=== PATIENT | male | born 1960 | race Caucasian/White ===

== ENCOUNTER → 2017-01-17 | Outpatient (CLI) | payer BC ==
[~2017-01-17] MED LIST: AUGMENTIN 500 M1 TAB PO
[2017-01-17 08:40] LABS: ALBUMIN 3.6 gm/dl (3.1-4.5); ALKALINE PHOSPHATASE 93 U/L (45-117); BILIRUBIN, TOTAL 0.3 mg/dl (0.2-1.0); BUN 17 mg/dl (7-24); CARBON DIOXIDE 21 mmol/L (21-32); CHLORIDE 110 mmol/L (98-107); CHOLESTEROL 326 mg/dL (<200); CPK 188 U/L (39-308); EST GLOM FILT AFRICAN AMERICAN > 60 ml/min; GLUCOSE 113 mg/dL (65-99); HDL CHOLESTEROL 35 mg/dl (40-60); POTASSIUM 4.4 mmol/L (3.5-5.1); SGOT/AST 26 IU/L (3-35); SODIUM 141 mmol/L (136-145); TOTAL PROTEIN 6.8 gm/dL (6.4-8.2); TRIGLYCERIDES 849 mg/dl (<150)
[2017-01-17 10:48] LABS: SGPT/ALT 31 U/L (12-78)
== END | disposition home or self-care (01) ==
LOC: LAB 07:33
PROVIDERS: Family Medicine
DX: E78.00 Pure hypercholesterolemia, unspecified (principal); I10 Essential (primary) hypertension; E55.9 Vitamin D deficiency, unspecified

== ENCOUNTER → 2017-06-06 | Outpatient (CLI) | payer BC ==
[2017-06-06 08:41] LABS: HEMATOCRIT 39.4 % (42.0-52.0); HEMOGLOBIN 13.3 g/dl (14.0-18.0); MEAN CELL VOLUME 93.6 fl (80.0-94.0); MEAN CORPUSCULAR HGB 31.6 pg (27.0-31.0); MEAN CORPUSCULAR HGB CONC 33.8 g/dl (33.0-37.0); MEAN PLATELET VOLUME 10.2 fl (9.6-12.3); RED BLOOD COUNT 4.21 10*6/uL (4.50-5.90); RED CELL DISTRI WIDTH 12.9 % (0-14.5); WHITE BLOOD COUNT 8.4 10*3/uL (4.8-10.8)
[2017-06-06 09:04] LABS: ALBUMIN 4.2 gm/dl (3.1-4.5); BUN 21 mg/dl (7-24); CHLORIDE 102 mmol/L (98-107); POTASSIUM 4.6 mmol/L (3.5-5.1); SODIUM 136 mmol/L (136-145)
[2017-06-06 09:11] LABS: ALKALINE PHOSPHATASE 64 U/L (45-117); CHOLESTEROL 182 mg/dL (<200); CREATININE 1.12 mg/dL (0.70-1.30); HDL CHOLESTEROL 60 mg/dl (40-60); LDL CHOLESTEROL 93 mg/dL (9-159); SGOT/AST 28 IU/L (3-35); SGPT/ALT 23 U/L (12-78); TOTAL PROTEIN 7.8 gm/dL (6.4-8.2); TRIGLYCERIDES 143 mg/dl (<150); VLDL CHOLESTEROL 29 mg/dL (6-40)
[2017-06-07 07:07] LABS: HEPATITIS B SURFACE AG Negative (Negative); HEPATITIS C VIRUS ANTIBODY <0.1 s/co (0.0-0.9)
== END | disposition home or self-care (01) ==
LOC: LAB 08:09
PROVIDERS: Family Medicine
DX: Z12.5 Encounter for screening for malignant neoplasm of prostate (principal); I10 Essential (primary) hypertension; E78.00 Pure hypercholesterolemia, unspecified; E55.9 Vitamin D deficiency, unspecified; R79.89 Other specified abnormal findings of blood chemistry

== ENCOUNTER → 2017-10-16 | Outpatient (CLI) | payer BC ==
[2017-10-16 10:58] LABS: HEMATOCRIT 39.4 % (42.0-52.0); HEMOGLOBIN 13.3 g/dl (14.0-18.0); MEAN CELL VOLUME 94.9 fl (80.0-94.0); MEAN CORPUSCULAR HGB CONC 33.8 g/dl (33.0-37.0); MEAN PLATELET VOLUME 9.7 fl (9.6-12.3); RED BLOOD COUNT 4.15 10*6/uL (4.50-5.90)
[2017-10-16 11:24] LABS: ALBUMIN 4.3 gm/dl (3.1-4.5); ALKALINE PHOSPHATASE 64 U/L (45-117); BUN 18 mg/dl (7-24); CHLORIDE 104 mmol/L (98-107); CHOLESTEROL 190 mg/dL (<200); CREATININE 1.07 mg/dL (0.70-1.30); HDL CHOLESTEROL 57 mg/dl (40-60); LDL CHOLESTEROL 97 mg/dL (9-159); SGOT/AST 22 IU/L (3-35); SGPT/ALT 20 U/L (12-78); SODIUM 138 mmol/L (136-145); TRIGLYCERIDES 178 mg/dl (<150); VLDL CHOLESTEROL 36 mg/dL (6-40)
== END | disposition home or self-care (01) ==
LOC: LAB 10:34
PROVIDERS: Family Medicine
DX: M19.011 Primary osteoarthritis, right shoulder (principal); E78.00 Pure hypercholesterolemia, unspecified; E55.9 Vitamin D deficiency, unspecified; I10 Essential (primary) hypertension

== ENCOUNTER → 2017-11-06 | Outpatient (CLI) | payer BC | END | disposition home or self-care (01) | LOC: MRI 12:48 | DX: M19.011 Primary osteoarthritis, right shoulder (principal) ==

== ENCOUNTER 2018-02-06 08:36 | Inpatient (IN) | payer BC ==
[~2018-02-06] VITALS: Ht 182.8 cm; Wt 87.7 kg
--- NOTE | ~2018-02-06 | DS ---
[place], [place] DISCHARGE SUMMARY NAME: EMELIA MEDINA UNIT #: [id number] ROOM: 405 DOCTOR: CHRISTY GUERRIER MD BIRTHDATE: [birth year] DOS: 02/07/2018 DISCHARGE DIAGNOSES: 1. Shortness of breath and back and left arm pains with normal cardiac stress test so far. 2. History of nicotine smoke dependence. 3. Benign essential hypertension. 4. Mixed hyperlipidemia. 5. Type 2 diabetes mellitus. 6. Severe generalized anxiety disorder. 7. Possible history of bronchial asthma. HOSPITAL COURSE: 1. The patient was admitted for recurrent complaints of shortness of breath and he also had an episode of left arm pain and back pains, taken as an anginal equivalent. The patient's cardiac enzymes were found to be normal, so he was taken for a cardiac stress test today. The EKG part of the cardiac stress test was normal and the nuclear portion which is the Cardiolite portion of the stress test will be reported by Dr. Johnston later today. If normal, the patient will be discharged home to follow up with his PCP, Dr. Aramis Dowling next week. 2. History of mixed hyperlipidemia, treated with low fat diet. The patient has lost 30 pounds of weight recently. 3. Nicotine smoke dependence. The patient smokes cigars and also was exposed to secondhand smoke from his and other family. The patient was cautioned about stopping to smoke and bad effects of cigarette smoke on his health and also secondhand smoker was explained to him. The patient's pulse ox remained 100% even with exercise in the hallways today. 4. Benign essential hypertension, treated and controlled. DISCHARGE MEDICATIONS: Aspirin 81 mg a day, metformin 500 mg daily, lisinopril 10 mg a day. Follow up with his PCP within a week. [place], [place] DISCHARGE SUMMARY NAME: EMELIA MEDINA Kassandra UNIT #: [id number] ROOM: 405 DOCTOR: CHRISTY GUERRIER MD BIRTHDATE: [birth year] CHRISTY GUERRIER MD CM:DISCHARG [id number] CHRISTY GUERRIER MD 02/07/18 1723 interface
--- NOTE | ~2018-02-06 | ST ---
[place], [place] EXERCISE STRESS TEST REPORT NAME: EMELIA MEDINA UNIT #: [id number] ROOM: 405 DOCTOR: CHRISTY GUERRIER MD BIRTHDATE: [birth year] DOS: 02/07/2018 The patient is a 57-year-old gentleman presently admitted to [facility] with complaints of angina symptoms. The patient's cardiac enzymes were all negative and he was taken for a standard Emelia protocol. The patient exercised for a total of 8 minutes and 50 seconds. Peak blood pressure was 146 systolic over 80s diastolic, and he reached a maximum heart rate of 157 beats per minute, which was 95% of the PMHR. The patient was injected with Cardiolite at 85% of the PMHR. The patient's baseline EKG showed normal sinus rhythm, normal EKG at the heart rate of 74 beats per minute, normal cardiac axis. During the exercise and recovery phase, the patient did not develop any significant EKG abnormality compatible with myocardial ischemia. The patient did not complain of any angina-like symptoms or any excessive shortness of breath. Good exercise tolerance. No significant EKG abnormality with exercise or during the recovery phase. IMPRESSION: Normal EKG part of the treadmill Cardiolite stress test at 95% PMHR. Cardiolite results to be reported separately by processing assistant, Dr. Reji Johnston, later today. CHRISTY GUERRIER MD CM:STRESS:EXERCISE STRESS TEST REPORT [id number] CHRISTY GUERRIER MD
--- NOTE | ~2018-02-06 | WRIGHTHP ---
[place], [place] PATIENT HISTORY AND PHYSICAL EXAM NAME: EMELIA MEDINA [facility] #: [id number] UNIT #: [id number] ROOM: 405 DOCTOR: CHRISTY GUERRIER MD BIRTHDATE: [birth year] DOS: 02/06/2018 HISTORY OF PRESENT ILLNESS: The patient is a 57-year-old gentleman with: 1. History of type 2 diabetes mellitus. 2. Nicotine smoke dependence. 3. Benign essential hypertension. 4. Mixed type hyperlipidemia. 5. Possible bronchial asthma. The patient presented to [facility] [place] with off and on complains of shortness of breath. He also had an episode of pain shooting down his left arm and in the back with an episode of sweating. The patient's symptoms off and on shortness of breath were taken as angina equivalent and he was recommended for admission to be ruled out for an acute MS and a cardiac stress test. The patient was given aspirin and he is already taking lisinopril and metformin at home. The patient is being [place] in [facility] No dizziness or fainting episode. No other GI or urinary symptoms. SYSTEMS REVIEW: LUNGS: Episodes of shortness of breath off and on. GASTROINTESTINAL: No nausea, vomiting, diarrhea or constipation. CARDIOVASCULAR SYSTEM: Episode of shooting pain in his back, shoulder going down his left arm yesterday. FAMILY HISTORY: Noncontributory. SOCIAL HISTORY: , smokes cigars. Denies any alcohol or drug abuse. HOME MEDICATIONS: Vitamin D, ibuprofen, Zestril and Glucophage. PHYSICAL EXAMINATION: GENERAL: The patient is alert, oriented x 3, looking somewhat anxious but in no visible distress. VITAL SIGNS: Blood pressure 120/70, heart rate of 64 beats per minute, breathing 18 times per minute, afebrile, pulse ox of 100%. Normal physical exam. LABORATORY DATA: Normal serum electrolytes except for blood sugar elevated to 109. First set of cardiac enzymes were normal. Chest x-ray was normal. PT, PTT were baseline. Lactic acid level of 1.6. Normal CBC and platelets. IMPRESSION: 1. The patient presenting with anginal equivalent. The patient will be admitted to a monitored bed, started on aspirin and cardiac enzymes are being performed. The patient is scheduled for a cardiac stress test, in the morning, if his cardiac enzymes remain normal. 2. History of mixed hyperlipidemia, treated with low fat diet. 3. The patient lost 30 pounds of weight recently. 4. Benign essential hypertension, treated and controlled. 5. Nicotine smoke dependence. The patient encouraged to stop smoking [place], [place] PATIENT HISTORY AND PHYSICAL EXAM NAME: EMELIA MEDINA UNIT #: [id number] ROOM: [facility] DOCTOR: CHRISTY GUERRIER MD BIRTHDATE: [birth year] cigarettes. He is also exposed to secondhand smoke from his and other family. CHRISTY GUERRIER MD CM:HISPHYS:PATIENT HISTORY AND PHYSICAL EXAMINATION [id number] CHRISTY GUERRIER MD 02/06/18 1713 interface
[2018-02-06 08:37] VITALS: BP 113/70
[2018-02-06 09:03] LABS: BASO % 0.5 % (0.0-1.0); EOS # 0.1 10*3/uL (0.0-0.4); EOS % 1.1 % (1.0-4.0); HEMATOCRIT 43.4 % (42.0-52.0); HEMOGLOBIN 14.3 g/dl (14.0-18.0); LYMPH # 3.6 10*3/uL (1.3-4.4); LYMPH % 41.2 % (27.0-41.0); MEAN CELL VOLUME 95.8 fl (80.0-94.0); MEAN CORPUSCULAR HGB 31.6 pg (27.0-31.0); MEAN CORPUSCULAR HGB CONC 32.9 g/dl (33.0-37.0); MEAN PLATELET VOLUME 9.6 fl (9.6-12.3); MONO # 0.6 10*3/uL (0.1-1.0); MONO % 6.3 % (3.0-9.0); NEUT # 4.4 10*3/uL (2.3-7.9); NEUT % 50.6 % (47.0-73.0); PLATELET COUNT AUTOMATED 207 10*3/uL (130-400); RED BLOOD COUNT 4.53 10*6/uL (4.50-5.90); RED CELL DISTRI WIDTH 13.4 % (0-14.5); WHITE BLOOD COUNT 8.7 10*3/uL (4.8-10.8)
[2018-02-06 09:11] LABS: INTERNATIONAL NORM RATIO 0.9 (2.0-3.5)
[2018-02-06 09:24] LABS: ALBUMIN 4.2 gm/dl (3.1-4.5); ALKALINE PHOSPHATASE 84 U/L (45-117); BUN 12 mg/dl (7-24); CHLORIDE 104 mmol/L (98-107); CREATININE 0.89 mg/dL (0.70-1.30); LIPASE 131 U/L (73-393); POTASSIUM 4.7 mmol/L (3.5-5.1); SGOT/AST 30 IU/L (3-35); SGPT/ALT 22 U/L (12-78); SODIUM 140 mmol/L (136-145); TOTAL PROTEIN 7.9 gm/dL (6.4-8.2)
[2018-02-06 09:34] LABS: TROPONIN I < 0.015 ng/ml (<0.045)
[2018-02-06 10:02] VITALS: BP 120/70
[2018-02-06 10:10] VITALS: BP 129/78
[2018-02-06] MEDS ORDERED: Motrin,Rufen800 MG PO (10:39)
[2018-02-06] MEDS ORDERED: VITAMIN D50000 UNIT PO (10:39)
[2018-02-06] MEDS ORDERED: ZESTRIL10 MG PO (10:39)
[2018-02-06] MEDS ORDERED: GLUCOPHAGE500 M1 PO (10:40)
[2018-02-06 12:00] VITALS: BP 123/77; BP 132/82
[2018-02-06 16:00] VITALS: BP 119/71
[2018-02-07] VITALS: BP 104/50
[2018-02-07 08:00] VITALS: BP 113/67
[2018-02-07 12:00] VITALS: BP 114/72
[2018-02-07 16:00] VITALS: BP 146/88
== END 2018-02-07 17:24 | disposition home or self-care (01) | DRG 311 ==
LOC: ED 08:36 → EDHOLD 09:56 → 4E 09:56
PROVIDERS: Emergency Medicine
PROC: 4A02XM4 Measurement of Cardiac Total Activity, External Approach (ICD-10-PCS; principal; 2018-02-07)
PROC: 3E073KZ Introduction of Other Diagnostic Substance into Coronary Artery, Percutaneous Approach (ICD-10-PCS; principal; 2018-02-07)
DX: I20.8 Other forms of angina pectoris (principal); E11.9 Type 2 diabetes mellitus without complications; E78.2 Mixed hyperlipidemia; I10 Essential (primary) hypertension; F17.200 Nicotine dependence, unspecified, uncomplicated; F41.1 Generalized anxiety disorder; Z88.0 Allergy status to penicillin; Z79.899 Other long term (current) drug therapy; Z71.6 Tobacco abuse counseling